=== PATIENT | male | born 1950 | race Caucasian/White ===

== ENCOUNTER 2016-12-02 17:24 | Emergency (ER) | payer OTHER, MEDICAID ==
[~2016-12-02] VITALS: Ht 165.1 cm; Wt 70.0 kg
[~2016-12-02 17:24] MED LIST: BENAZEPRIL PO; DONE5TAB7 PO
[2016-12-02 17:38] VITALS: Ht 165.1 cm; Wt 70.0 kg
--- NOTE | 2016-12-02 18:02 | ERD ---
ER Documentation Chief Complaint Date/Time DATE: 12/02/16 TIME: 17:57 Chief Complaint COUGH X 2 DAYS,BACK PAIN HPI This pleasant 66-year-old male patient presents to the emergency department today with complaint of cough, headache, and back pain. Patient reports symptoms started 2 days ago. Patient reports cough is nonproductive, worse at night. She denies history of smoking or asthma. Patient denies antibiotics in the last 3 months. Patient denies nausea, vomiting, fever, chills, palpitations , shortness of breath, or dizziness. Patient has tried no aejx-epe-isarxje medication for symptomatic relief. ROS All systems reviewed and are negative except as per history of present illness. Medications Home Meds Active Scripts Guaifenesin (Mucinex) 1,200 Mg Tab.er.12h, 1200 MG PO BID for 5 Days, TAB Prov:CARMELOYAMILKA 12/02/16 Reported Medications Donepezil* (Donepezil*) 5 Mg Tablet, 5 MG PO DAILY 09/29/13 [Benazepril] No Conflict Check, 20 MG PO DAILY 09/29/13 Allergies Allergies: Coded Allergies: No Known Allergies (Verified Allergy, Unknown, 12/02/16) PMhx/Soc History of Surgery: No Anesthesia Reaction: No Hx Neurological Disorder: No Hx Respiratory Disorders: No Hx Cardiac Disorders: Yes (HTN) Hx Psychiatric Problems: No Hx Miscellaneous Medical Probl: No Hx Alcohol Use: No Hx Substance Use: No Hx Tobacco Use: Yes (USED TO SMOKE) Smoking Status: Former smoker Physical Exam Vitals Vitals stable, nursing notes reviewed Physical Exam Const: No acute distress Head: Atraumatic Eyes: Normal Conjunctiva PERRLA, EOMI ENT: Bilateral tympanic membranes translucent, auditory canals are clear, nasal mucosa pale, edematous +2, mucus noted, no maxillary or frontal sinus tenderness, pharynx pink, tongue midline, tonsils not visualized, uvula rises and falls with pronation. Neck: Full range of motion..~ No meningismus. No palpable adenopathy Resp: Loose movable rhonchi, diminished bases Cardio: Regular rate and rhythm, no murmurs Abd: Skin: Back: No midline or flank tenderness Ext: Neur: Awake and alert Psych: Normal Mood and Affect Procedures/MDM PROCEDURE: XR Chest. CLINICAL INDICATION: Cough TECHNIQUE: PA and lateral views of the chest were obtained. COMPARISON: 09/22/2014 FINDINGS: The cardiomediastinal silhouette is within normal limits. The lungs are clear. No pleural effusion or pneumothorax is identified. The visualized osseous structures are intact. IMPRESSION: No evidence of active cardiopulmonary disease. RPTAT: EE .Greg Steven MD, MD Date Time This pleasant 66-year-old male patient presents to the emergency department with a 2 day history of cough headache and back pain. Patient has no history of smoking, bronchitis, COPD, CHF. Patient is on medication for hypertension, denies shortness of breath, chest pain palpitations or dizziness. Low suspicion for cardiovascular causation. Chest x-ray will be obtained to regard this. Chest x-ray normal with no evidence of consolidation or infiltrate, cardiac silhouette within normal limits. Patient will be treated for a cough with Mucinex, instructed to follow-up with primary care physician if cough persists for additional 7 days or if patient feels worse than he does now return to emergency room, return for shortness of breath, hemoptysis, chest pain , or dizziness. I feel the patient is stable for discharge at this time. I have discussed results, examination findings, the treatment plan with the patient and family present prior to discharge. Indications for emergent reevaluation, side effects of medication were also discussed. All questions were answered. Patient verbalizes understanding and agrees with plan of care. Departure Diagnosis: Primary Impression: Cough Condition: Good Patient Instructions: Cough, Chronic, Uncertain Cause, (Adult) Additional Instructions: Thank you for for coming to [facility] for your care today. Please ask your nurse or provider if you have questions about your care today and do not leave until all your questions have been answered. Please use any medications given as directed and follow-up with your doctor (or the doctor you were referred to) in the next 2-3 days. If you do not have a primary care doctor you may follow up at the [facility] (listed below). You may also use motrin and tylenol as needed for fever and/or pain unless instructed otherwise by your provider or nurse. Indications for more urgent follow-up have been discussed, but you may return to the Emergency Department at ANY time for any worrisome or worsening symptoms. If you have abdominal pain, please know that no test or exam you received is perfect and you should follow up within 8 hours for continued pain. If you had any imaging studies today, such as an X-Ray or CT Scan, these studies will be reviewed later by a radiologist. You will be called if there are important findings that were not identified today, so make sure the contact information you provided at registration is correct. If you received any narcotic pain control medicine today, such as Vicodin, Morphine or Dilaudid, your coordination and judgment may be affected for a number of hours. Please do not drive or operate heavy machinery, and you may want someone to assist you at home. If you were given a prescription for narcotic medication, be aware that it is very addictive- use sparingly and only if necessary. YAMILKA RHODES Dec 02, 2016 18:02
--- NOTE | 2016-12-02 19:40 | RADRPT ---
PROCEDURE: XR Chest. CLINICAL INDICATION: Cough TECHNIQUE: PA and lateral views of the chest were obtained. COMPARISON: 09/22/2014 FINDINGS: The cardiomediastinal silhouette is within normal limits. The lungs are clear. No pleural effusion or pneumothorax is identified. The visualized osseous structures are intact. IMPRESSION: No evidence of active cardiopulmonary disease. RPTAT: EE .Greg Steven MD, Date Time Electronically viewed and signed by .Greg Steven MD, on 12/02/2016 19:39 .O/
[2016-12-02] MEDS ORDERED: GUAI-637 PO (20:01)
[2016-12-02] MEDS ORDERED: GUAI120011 PO (20:03)
== END 2016-12-02 20:17 | disposition home or self-care (01) ==
LOC: FTE 17:24
DX: R05 Cough (principal); I10 Essential (primary) hypertension; Z87.891 Personal history of nicotine dependence
CPT/HCPCS: 71020

== ENCOUNTER 2017-04-30 21:12 | Emergency (ER) | payer OTHER ==
[~2017-04-30] VITALS: Ht 167.6 cm; Wt 68.5 kg
[~2017-04-30 21:12] MED LIST changes: +GUAI120011 PO
[2017-04-30 21:42] VITALS: Ht 167.6 cm; Wt 68.5 kg
[2017-05-01] MEDS ORDERED: SOD CHLORIDE 0.9% 500 ML IV STA (01:26)
[2017-05-01] MEDS ORDERED: morphine 4 MG/ML VIAL IV STA (01:26)
[2017-05-01] MEDS ORDERED: ONDANSETRON 4 MG INJ IV STA (01:26)
[2017-05-01 02:33] LABS: BASOPHILS % 0.5 % (0.0-2.0); EOSINOPHILS # 0.1 10^3/ul (0.0-0.5); EOSINOPHILS % 2.4 % (0.0-7.0); HEMATOCRIT 42.6 % (42.0-52.0); HEMOGLOBIN 14.9 g/dl (14.0-18.0); LYMPHOCYTES # 1.6 10^3/ul (0.8-2.9); LYMPHOCYTES % 28.4 % (15.0-51.0); MEAN CORPUSCULAR HEMOGLOBIN 31.5 pg (29.0-33.0); MEAN CORPUSCULAR VOLUME 90.1 fl (82.0-101.0); MEAN PLATELET VOLUME 11.1 fl (7.4-10.4); MONOCYTE # 0.5 10^3/ul (0.3-0.9); NEUTROPHILS % 59.5 % (39.0-77.0); PLATELET COUNT 166 10^3/UL (140-415); RED BLOOD COUNT 4.73 10^6/ul (4.70-6.10); RED CELL DISTRIBUTION WIDTH 12.9 % (11.5-14.5); WHITE BLOOD COUNT 5.8 10^3/ul (4.8-10.8)
--- NOTE | 2017-05-01 02:43 | RADRPT ---
PROCEDURE: CT Abdomen and pelvis without contrast. CLINICAL INDICATION: Abdominal pain. TECHNIQUE: CT scan of the abdomen and pelvis was performed on a multi-detector high-resolution CT scanner. Contiguous axial images were obtained from the lung bases to the ischial tuberosities wit hout intravenous contrast. Coronal and sagittal reformatted images were also obtained. Images were reviewed on the PACS workstation. One or more of the following dose reduction techniques were used: - Automated exposure control. - Adjustment of the mA and/or kV according to patient size. - Use of iterative reconstruction technique. Exam CTD/vol = 8.81 mGy. Total exam DLP = 546.84 mGy-cm. COMPARISON: None. FINDINGS: Evaluation of the lung bases demonstrates mild bibasilar atelectasis. Abdomen: The liver is normal in size. There is no focal mass or dilatation of the biliary tree. T he gallbladder is not distended. Multiple gallstones are identified. The spleen, pancreas and bilat eral adrenal glands are within normal limits. Bilateral kidneys are normal in size with no contour deforming mass identified. There is no radiopaque renal or ureteral calculus identified. There is no hydronephrosis or hydroureter. There is no retroperitoneal adenopathy. The abdominal aorta is o f normal caliber. There is diverticulosis of the descending and sigmoid colon with mild thickening and stranding invol ving the mid sigmoid colon. There is no bowel obstruction or free air. A normal appendix is identi fied. Pelvis: The bladder demonstrates mild wall thickening. The prostate is moderately enlarged. There is no significant pelvic adenopathy or free fluid. Evaluation of the osseous structures demonstrates no suspicious lytic or blastic lesion. IMPRESSION: Descending and sigmoid diverticulosis with mild sigmoid diverticulitis. Mild bladder wall thickening could suggest cystitis. Clinical correlation is needed. Moderately enlarged prostate. Cholelithiasis. Mild bibasilar atelectasis. .Kin Zavala MD, MD Date Time Electronically viewed and signed by .Kin Zavala MD, MD on 05/01/2017 02:43 .T/
[2017-05-01 02:44] LABS: ADD UMIC YES; UR ASCORBIC ACID NEGATIVE (NEGATIVE); UR BILIRUBIN (Dip) NEGATIVE (NEGATIVE); UR BLOOD (Dip) 2+ mg/dL (NEGATIVE); UR CLARITY CLEAR (CLEAR); UR COLOR YELLOW (YELLOW); UR GLUCOSE (Dip) NEGATIVE (NEGATIVE); UR KETONES (Dip) NEGATIVE (NEGATIVE); UR LEUKOCYTE ESTERASE (Dip) NEGATIVE Leu/ul (NEGATIVE); UR MUCUS MODERATE /HPF (NONE SEEN); UR NITRITE (Dip) NEGATIVE (NEGATIVE); UR RBC 7 /HPF (0-5); UR SPECIFIC GRAVITY (Dip) 1.027 (1.003-1.030); UR TOTAL PROTEIN (Dip) 1+ mg/dl (NEGATIVE); UR UROBILINOGEN (Dip) 2+ mg/dL (NEGATIVE)
--- NOTE | 2017-05-01 02:48 | ERD ---
ER Documentation Chief Complaint Date/Time DATE: 05/01/17 TIME: 02:47 Chief Complaint MID LOWER ABD PAIN X2 DAYS DENIES N/V/DIARRHEA HPI This is extremely mild mid lower abdominal pain for 2 days. Denies nausea vomiting diarrhea. Pain is mild to moderate intensity. No other current complaints. No change in bladder or bladder habits. ROS All systems reviewed and are negative except as per history of present illness. Medications Home Meds Active Scripts Guaifenesin (Mucinex) 1,200 Mg Tab.er.12h, 1200 MG PO BID for 5 Days, TAB Prov:CARMELO,MELODY 12/02/16 Reported Medications Donepezil* (Donepezil*) 5 Mg Tablet, 5 MG PO DAILY 09/29/13 [Benazepril] No Conflict Check, 20 MG PO DAILY 09/29/13 Allergies Allergies: Coded Allergies: No Known Allergies (Verified Allergy, Unknown, 04/30/17) PMhx/Soc History of Surgery: No Anesthesia Reaction: No Hx Neurological Disorder: No Hx Respiratory Disorders: No Hx Cardiac Disorders: Yes (HTN) Hx Psychiatric Problems: No Hx Miscellaneous Medical Probl: No Hx Alcohol Use: No Hx Substance Use: No Hx Tobacco Use: Yes (USED TO SMOKE) Smoking Status: Former smoker Physical Exam Vitals Vital Signs Date Time Temp Pulse Resp B/P Pulse Ox O2 Delivery O2 Flow Rate FiO2 04/30/17 21:42 98.1 67 18 164/87 99 Physical Exam Const: [] Head: Atraumatic Eyes: Normal Conjunctiva ENT: Normal External Ears, Nose and Mouth. Neck: Full range of motion..~ No meningismus. Resp: Clear to auscultation bilaterally Cardio: Regular rate and rhythm, no murmurs Abd: Soft, non tender, non distended. Normal bowel sounds Skin: No petechiae or rashes Back: No midline or flank tenderness Ext: No cyanosis, or edema Neur: Awake and alert Psych: Normal Mood and Affect Result Diagram: 05/01/17 0137 Results 24 hrs Laboratory Tests Test 05/01/17 01:37 White Blood Count 5.810^3/ul Red Blood Count 4.7310^6/ul Hemoglobin 14.9g/dl Hematocrit 42.6% Mean Corpuscular Volume 90.1fl Mean Corpuscular Hemoglobin 31.5pg Mean Corpuscular Hemoglobin Concent 35.0g/dl Red Cell Distribution Width 12.9% Platelet Count 82294^3/UL Mean Platelet Volume 11.1fl Neutrophils % 59.5% Lymphocytes % 28.4% Monocytes % 9.0% Eosinophils % 2.4% Basophils % 0.5% Nucleated Red Blood Cells % 0.0/100WBC Neutrophils # (Manual) 3.410^3/ul Lymphocytes # 1.610^3/ul Monocytes # 0.510^3/ul Eosinophils # 0.110^3/ul Basophils # 0.010^3/ul Nucleated Red Blood Cells # 0.010^3/ul Urine Color YELLOW Urine Clarity CLEAR Urine pH 5.0 Urine Specific Rand 1.027 Urine Ketones NEGATIVEmg/dL Urine Nitrite NEGATIVEmg/dL Urine Bilirubin NEGATIVEmg/dL Urine Urobilinogen 2+mg/dL Urine Leukocyte Esterase NEGATIVELeu/ul Urine Microscopic RBC 7/HPF Urine Microscopic WBC 1/HPF Urine Mucus MODERATE/HPF Urine Hemoglobin 2+mg/dL Urine Glucose NEGATIVEmg/dL Urine Total Protein 1+mg/dl Current Medications Medications (Trade) Dose Ordered Sig/Shira Route PRN Reason Start Time Stop Time Status Last Admin Dose Admin Sodium Chloride (NS) 500 ml @ 500 mls/hr Q1H STAT IV 05/01/17 01:26 05/01/17 02:25 DC 05/01/17 02:04 Morphine Sulfate (morphine) 4 mg ONCE STAT IV 05/01/17 01:26 05/01/17 01:28 DC 05/01/17 02:03 Ondansetron HCl (Zofran Inj) 4 mg ONCE STAT IV 05/01/17 01:26 05/01/17 01:28 DC 05/01/17 02:04 Procedures/MDM Medical decision-makin general mild diverticulitis. At this point clinically stable. Discharge home with Cipro and Flagyl. Follow-up in 8 hours for serial abdominal exams. Departure Diagnosis: Primary Impression: Abdominal pain Abdominal location: generalized Qualified Code: R10.84 - Generalized abdominal pain Condition: Stable DEANNWES SharmaJesse May 01, 2017 02:48
[2017-05-01 02:50] LABS: INR 0.91; PROTIME 12.3 Sec (12.2-14.2)
[2017-05-01] MEDS ORDERED: CIPR500T4 PO (02:50)
[2017-05-01] MEDS ORDERED: METR500T PO (02:50)
[2017-05-01] MEDS ORDERED: TRAM50TA2 PO (02:50)
[2017-05-01 02:51] LABS: PARTIAL THROMBOPLASTIN TIME 27.7 Sec (25.0-35.0)
[2017-05-01 02:59] VITALS: BP 167/85; PULSE 62; RESP 16; TEMP 98.3
[2017-05-01 02:59] LABS: ALBUMIN 4.6 g/dl (3.3-4.9); ALBUMIN/GLOBULIN RATIO 1.21; BILIRUBIN,INDIRECT 0.5 mg/dl (0-1.1); BILIRUBIN,TOTAL 0.5 mg/dl (0.2-1.3); CALCIUM 9.4 mg/dl (8.4-10.2); CREATININE 0.9 mg/dl (0.61-1.24); POTASSIUM 3.9 mmol/L (3.5-5.1); TOTAL PROTEIN 8.4 g/dl (6.1-8.1)
== END 2017-05-01 02:50 | disposition home or self-care (01) ==
LOC: E/R 21:12
DX: K57.32 Diverticulitis of large intestine without perforation or abscess without bleeding (principal); I10 Essential (primary) hypertension; Z87.891 Personal history of nicotine dependence
CPT/HCPCS: 36415; 74176; 80053; 81001; 83690; 85025; 85610; 85730; 96374; 96375; 99285; J2270; J2405; J7040

== ENCOUNTER 2017-06-08 22:12 | Emergency (ER) | payer OTHER ==
[~2017-06-08] VITALS: Ht 170.2 cm; Wt 67.5 kg
[~2017-06-08 22:12] MED LIST changes: +CIPR500T4 PO; +METR500T PO; +TRAM50TA2 PO
[2017-06-09 00:24] VITALS: Ht 170.2 cm; Wt 67.5 kg
[2017-06-09] MEDS ORDERED: traMADol 50 MG TAB PO ONE (03:00)
[2017-06-09] MEDS ORDERED: TRAM50TA2 PO (03:44)
[2017-06-09] MEDS ORDERED: PENI500T PO (03:44)
--- NOTE | 2017-06-09 07:14 | ERD ---
ER Documentation Chief Complaint Chief Complaint toothache HPI 66-year-old male patient with no significant past medical history presents to the ED complaining of left sided dental pain that started yesterday. Describes it as achy. Patient reports that he has not seen a dentist. Denies any chest pain, shortness of breath, fever, chills, hemoptysis, hematemesis. ROS All systems reviewed and are negative except as per history of present illness. Medications Home Meds Active Scripts Penicillin V Potassium* (Penicillin V K*) 500 Mg Tab, 500 MG PO QID for 7 Days, TAB Prov:SABINE FERNANDES PA-C 06/09/17 Tramadol HCl (Tramadol HCl) 50 Mg Tablet, 50 MG PO Q6 Y for PAIN, #20 TAB Prov:SABINE FERNANDES PA-C 06/09/17 Tramadol HCl (Tramadol HCl) 50 Mg Tablet, 50 MG PO Q4 Y for PAIN, #20 TAB Prov:WES ZACARIAS 05/01/17 Metronidazole* (Flagyl*) 500 Mg Tablet, 500 MG PO TID for 7 Days, TAB Prov:WES ZACARIAS S. 05/01/17 Ciprofloxacin Hcl* (Ciprofloxacin Hcl*) 500 Mg Tablet, 500 MG PO BID for 7 Days , TAB Prov:WES ZACARIAS 05/01/17 Guaifenesin (Mucinex) 1,200 Mg Tab.er.12h, 1200 MG PO BID for 5 Days, TAB Prov:CARMELOKELSEYYAMILKA 12/02/16 Reported Medications Donepezil* (Donepezil*) 5 Mg Tablet, 5 MG PO DAILY 09/29/13 [Benazepril] No Conflict Check, 20 MG PO DAILY 09/29/13 Allergies Allergies: Coded Allergies: No Known Allergies (Verified Allergy, Unknown, 04/30/17) PMhx/Soc Anesthesia Reaction: No Hx Neurological Disorder: No Hx Respiratory Disorders: No Hx Psychiatric Problems: No Hx Miscellaneous Medical Probl: No Hx Alcohol Use: No Hx Substance Use: No Hx Tobacco Use: No Smoking Status: Never smoker Physical Exam Vitals Vital Signs Date Time Temp Pulse Resp B/P Pulse Ox O2 Delivery O2 Flow Rate FiO2 06/09/17 00:24 97.2 63 20 167/90 100 Physical Exam Const: Fvi-knf-mioebizfj, well-nourished. In no acute distress. Head: Atraumatic, normocephalic Eyes: Normal Conjunctiva without injection. No purulent discharge. PERRL. EOMI ENT: Normal external ear. Ear canal without erythema. Tympanic membrane pearly quiñonez without effusion or bulging. Nasal canal clear with normal turbinates. There is palpation of the left third mandibular molar. Erythema noted at the base of the left third molar of the gingiva with no fluctuance or induration. No purulent discharge. Moist oropharynx without tonsillar exudates. Non- erythematous pharynx. Uvula midline. No drooling. No trismus. Neck: Full range of motion. No meningismus. No cervical lymphadenopathy. Resp: Clear to auscultation bilaterally. No wheezing, rhonchi, rales, or crackles. No accessory muscle use. No retractions. Cardio: Regular rate and rhythm. No murmurs, rubs or gallops. Abd: Soft, non tender, non distended. Normal bowel sounds. No palpable masses. No rebound tenderness. No guarding. Skin: No petechiae or rashes Back: No midline tenderness. No CVA tenderness. Ext: No cyanosis, or edema. Neur: Awake and alert. Psych: Normal Mood and Affect Results 24 hrs Current Medications Medications (Trade) Dose Ordered Sig/Shira Route PRN Reason Start Time Stop Time Status Last Admin Dose Admin Tramadol HCl (Ultram) 50 mg ONCE ONCE PO 06/09/17 03:00 06/09/17 03:01 DC 06/09/17 03:22 Procedures/MDM 66-year-old male patient with no significant past medical history presents to the ED complaining of left sided dental pain. Patient is afebrile nontoxic appearing. Patient has normal vital signs. Patient reports that chewing worsens the pain. Patient is appropriate for outpatient antibiotics. Patient's physical exam include lungs which were clear to auscultation and a normal pulse oximetry. Bilateral ears pearly wells. No tenderness to palpation of tragus or mastoid. Low suspicion for mastoiditis, otitis externa, otitis media. Patient is speaking in full sentences. There is a low suspicion for pneumonia, epiglottitis, croup, sinusitis, peritonsillar abscess, hands foot mouth disease , scarlet fever, Kawasaki disease, Luis's angina, retropharyngeal abscess, meningitis, sepsis, acute abdomen or other emergent conditions. Discharge medications: Penicillin, Tramadol Follow up with primary care physician in 1-2 days. Instructed patient to return to the ED sooner for any worsening symptoms. Patient's questions were answered. Patient understood and agreed with discharge plan. Patient discharged stable. Departure Diagnosis: Primary Impression: Toothache Condition: Stable Patient Instructions: Dental Pain Referrals: RAUL OSPINA (PCP) [facility] YOU HAVE RECEIVED A MEDICAL SCREENING EXAM AND THE RESULTS INDICATE THAT YOU DO NOT HAVE A CONDITION THAT REQUIRES URGENT TREATMENT IN THE EMERGENCY DEPARTMENT. FURTHER EVALUATION AND TREATMENT OF YOUR CONDITION CAN WAIT UNTIL YOU ARE SEEN IN YOUR DOCTORS OFFICE WITHIN THE NEXT 1-2 DAYS. IT IS YOUR RESPONSIBILITY TO MAKE AN APPOINTMENT FOR FOLOW-UP CARE. IF YOU HAVE A PRIMARY DOCTOR --you should call your primary doctor and schedule an appointment IF YOU DO NOT HAVE A PRIMARY DOCTOR YOU CAN CALL OUR PHYSICIAN REFERRAL HOTLINE AT IF YOU CAN NOT AFFORD TO SEE A PHYSICIAN YOU CAN CHOSE FROM THE FOLLOWING [facility] [address] [facility]. [facility] [address] [facility] [address] [facility] [address] [facility] [facility] [address] [facility]. [facility]. [address] [facility]. [facility] YOU HAVE RECEIVED A MEDICAL SCREENING EXAM AND THE RESULTS INDICATE THAT YOU DO NOT HAVE A CONDITION THAT REQUIRES URGENT TREATMENT IN THE EMERGENCY DEPARTMENT. FURTHER EVALUATION AND TREATMENT OF YOUR CONDITION CAN WAIT UNTIL YOU ARE SEEN IN YOUR DOCTORS OFFICE WITHIN THE NEXT 1-2 DAYS. IT IS YOUR RESPONSIBILITY TO MAKE AN APPOINTMENT FOR FOLOW-UP CARE. IF YOU HAVE A PRIMARY DOCTOR --you should call your primary doctor and schedule and appointment IF YOU DO NOT HAVE A PRIMARY DOCTOR YOU CAN CALL OUR PHYSICIAN REFERRAL HOTLINE AT . IF YOU CAN NOT AFFORD TO SEE A PHYSICIAN YOU CAN CHOSE FROM THE FOLLOWING [facility]: [facility] [address] [place] [address] [facility] [address] [place] [address] [facility] [address] [place] [address] [facility]CIALT[facility] DENTIST ([facility] walk in clinic) Additional Instructions: Seguimiento con un dentista en 2 locke Regrese a estas instalaciones si no se mejora glenny esperbamos o glenny le dijimos. SABINE FERNANDES PA-C Jun 09, 2017 07:14
== END 2017-06-09 04:11 | disposition home or self-care (01) ==
LOC: FTE 22:12
DX: K08.89 Other specified disorders of teeth and supporting structures (principal)
CPT/HCPCS: 99284

== ENCOUNTER 2017-08-16 19:47 | Emergency (ER) | END 2017-08-17 00:37 | disposition home or self-care (01) ==

== ENCOUNTER 2019-05-01 21:30 | Emergency (ER) | payer OTHER ==
[~2019-05-01] VITALS: Ht 167.6 cm; Wt 67.5 kg
[~2019-05-01 21:30] MED LIST changes: +ALBU8.5H8 INH; +AMOX1TAB10 PO; +AZIT250T PO; +BENZ-6 PO; +GUAI120S25 PO; +IBUP-1542 PO; +OSEL75CA23 PO; +PENI500T PO; +PRED20TA PO; +PROM5SYR2 PO
[2019-05-01 21:45] VITALS: Ht 167.6 cm; Wt 67.5 kg
[2019-05-02 01:30] VITALS: BP 175/95; PULSE 55; RESP 20
== END 2019-05-02 01:40 | disposition home or self-care (01) ==
LOC: FTE 21:30
DX: J40 Bronchitis, not specified as acute or chronic (principal)
CPT/HCPCS: 71045